=== PATIENT | female | born 1980 | race Caucasian/White ===

== ENCOUNTER 2022-04-07 09:13 | Outpatient (REF) | payer OTHER, SELFPAY ==
[2022-04-07 11:34] LABS: Influenza A PCR NEGATIVE (Negative); Influenza B PCR NEGATIVE (Negative); Resp Syncy Virus RNA Qual PCR NEGATIVE (Negative); SARS COV2 PCR INHOUSE NEGATIVE (Negative)
== END 2022-04-07 09:14 | disposition home or self-care (01) ==
LOC: HO.LAB 09:13
PROVIDERS: Visit Provider Family Medicine
DX: Z20.822 Contact with and (suspected) exposure to COVID-19 (principal); J02.9 Acute pharyngitis, unspecified
CPT/HCPCS: 0241U

== ENCOUNTER → 2023-11-02 09:38 | Outpatient (BNVA) | payer OTHER, SELFPAY | PROVIDERS: Visit Provider Physician Assistant Medical | DX: H10.12 Acute atopic conjunctivitis, left eye (principal); T15.02XA Foreign body in cornea, left eye, initial encounter; Z91.09 Other allergy status, other than to drugs and biological substances | CPT/HCPCS: 92002; 99203 ==

== ENCOUNTER 2024-05-07 10:44 | Outpatient (REF) | payer BC, SELFPAY ==
[2024-05-07 12:04] VITALS: BP 136/77; PULSE 73; RESP 18; TEMP 36.6; O2SAT 98; BMI 23.4
== END 2024-05-07 10:45 | disposition home or self-care (01) ==
LOC: HO.MS 10:44
PROVIDERS: Visit Provider Ophthalmology
PROC: (CPT 67800; principal; 2024-05-07 14:10)
DX: H00.15 Chalazion left lower eyelid (principal)
CPT/HCPCS: 67800; J2004

== ENCOUNTER 2024-07-03 08:31 | Outpatient (AMB) | payer BC, SELFPAY ==
--- NOTE | 2024-07-03 08:33 | A.OFFPC_ITS ---
Vital Signs 07/03/24 08:36 07/03/24 09:10 Height 5 ft 6.14 in Weight 158 lb BMI 25.4 BP 140/70 H 118/72 Blood Pressure Location Lt brachial Lt brachial Position Sitting Sitting Pulse 70 Pulse Source Pulse Oximeter Temp 97.1 F Temp Source Temporal Artery Scan Pulse Oximetry (%) 97 Oxygen Delivery Method Room Air Intake Visit Reasons: establish care Intake Note: Patient is a new patient here to establish care for Depression, Anxiety. Transferring care from [facility]. Medical records have not been requested and have not received. Air Breaker Operator Required: No Hand Spray Operator: Not Required per policy Accompanied by: Self / Same As Patient Allergies No Known Allergies [No Known Allergies*] Allergy (Verified 07/03/24 08:47) Medication List - Last Reconciled 07/03/24 by Yael Ware PA-C No Known Home Meds Tobacco use date assessed: 07/03/24 Dental Screening Dental Screen Date: 07/03/24 Did you have a dental visit in the last 12 months?: Yes Did you have a dental problem in the last 6 months where you did not have access to dental care?: No Was dental information given to patient?: Patient has dentist HPI establish care HPI Details 43 year old female coming to the office for the first time. Presenting for a wellness visit and establishment of care. She underwent surgery for a chalazion in May, initially impacting her vision and requiring urgent referral; management involved a backdated insurance process through [employer]. Past experience with anxiety and depression during her 20s, successfully controlled with coping mechanisms and without current pharmacotherapy. Elevated blood pressure linked to life stress, particularly associated with homeownership and tenant difficulties. Experienced one allergic reaction recently with flushing and throat discomfort post-ingestion of an unidentified food; symptoms relieved by Benadryl. 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 1. Little interest or pleasure in doing things: not at all 2. Feeling down, depressed, or hopeless: not at all 3. Trouble falling or staying asleep, or sleeping too much: not at all 4. Feeling tired or having little energy: several days 5. Poor appetite or overeating: not at all 6. Feeling bad about yourself - or that you are a failure or have let yourself or your family down: not at all 7. Trouble concentrating on things, such as reading the newspaper or watching television: not at all 8. Moving or speaking so slowly that other people could have noticed. Or the opposite - being so fidgety or restless that you have been moving around a lot more than usual: not at all 9. Thoughts that you would be better off or of hurting yourself in some way: not at all Total score: 1 Depression Screening Interpretation: Positive Depression Screening Done: Yes Source: Developed by Drs. Kamaljit Garcia, Sandhya Butt, Eric Pettit and colleagues, with an educational colby from [employer]. Thrive Questionnaire Date Thrive assessed: 07/03/24 I am a: Patient What is your living situation today?: I have a steady place to live Within the past 12 months, did the food you bought not last and you didn't have the money to get more?: Never true Within the past 12 months, did you worry whether your food would run out before you got money to buy more?: Never true Do you have trouble paying for medicines?: No Do you have trouble getting transportation to medical appointments?: No Do you have trouble paying your heating and electricity bill?: No Do you have trouble taking care of your child, family member or friend?: No Do you have trouble with day-to-day activities such as bathing, preparing meals, shopping, managing finances, etc.?: No Are you currently unemployed and looking for a job?: No Are you interested in more education?: No Please select the resources that you would like help with: None Currently or been in a relationship where the following occur: No concerns reported THRIVE Score: 0 AUDIT C Alcohol Use Questionnaire (AUDIT-C) 1. How often do you have a drink containing alcohol?: Monthly or less 2. How many drinks containing alcohol do you have on a typical day when you are drinking?: 1 or 2 3. How often do you have six or more drinks on one occasion?: Less than monthly Total Score: 2 Score Reviewed/Action Taken: Yes LYNETTE-7 AMB Questionnaire LYNETTE-7 Date LYNETTE - 7 assessed: 07/03/24 Feeling nervous, anxious, or on edge: 1 = Several days Not being able to stop or control worryin = Not at all Worrying too much about different things: 0 = Not at all Trouble relaxin = Not at all Being so restless that it is hard to sit still: 0 = Not at all Becoming easily annoyed or irritable: 1 = Several days Feeling afraid as if something awful might happen: 0 = Not at all Total LYNETTE-7 score (0-4 normal; 5-9 mild; 10-14 moderate; 15-21 severe): 2 Source: Developed by Drs. Kamaljit Garcia, Sandhya Butt, Eric Pettit and colleagues, with an educational colby from [employer]. LYNETTE-7 Assessment Billing LYNETTE-7 Assessment Tool: LYNETTE-7 Assessment 85805 Review of Systems Const Denies body aches, Denies chills, Denies fever(s), Denies headache(s) and Denies poor appetite Eyes Reports no additional complaints ENT Denies dizziness and Denies headache(s) Card Denies chest pain, Denies lightheadedness and Denies dyspnea Resp Denies dyspnea GI Denies abdominal pain, Denies constipation, Denies diarrhea, Denies nausea and Denies vomiting Reports no additional complaints Musc Reports no additional complaints and Denies abnormal gait Skin/Breast Reports system reviewed and no additional complaints, except as documented Neuro Denies abnormal gait, Denies dizziness and Denies headache(s) Psych Reports no additional complaints Physical exam (Primary Care) Vital Signs: Last Vital Signs Temp 97.1 F 07/03/24 08:36 Pulse 70 07/03/24 08:36 BP 118/72 07/03/24 09:10 Pulse Ox 97 07/03/24 08:36 Oxygen Delivery Method Room Air 07/03/24 08:36 BMI result Body Mass Index 25.4 Tobacco/Smoking Status: Tobacco use Status Tobacco use date assessed 07/03/24 07/03/24 08:45 Patient Tobacco Use Status Never used Tobacco 07/03/24 08:45 e-Cigarette/Vaping Use Currently Using 07/03/24 08:45 PHQ-9: PHQ-9 Score PHQ-9: Total score 1 07/03/24 08:47 Depression Screening Interpretation: Positive Thrive Assessment: Date of Thrive Assessment Date Thrive assessed 07/03/24 07/03/24 08:45 Currently or been in a relationship where the following occur: No concerns reported Const General: cooperative, healthy appearing, comfortable and no acute distress Orientation/consciousness: patient oriented x3 HENMT Head: Yes normocephalic Ears: hearing grossly normal bilaterally General nose exam: Normal external nose present Eyes General: appearance normal, both eyes and all related structures Conjunctivae: conjunctivae normal Neck Neck: Yes full ROM and Yes no lymphadenopathy Resp Effort & Inspection: normal respiratory effort Auscultation: clear to auscultation bilaterally, no crackles, no rales, no rhonchi and no wheezes Cardio Rate: regular rate Rhythm: regular rhythm Skin General skin exam: no rashes or lesions noted Neuro General: patient oriented x3 Gait exam (Neuro): Normal gait present Extrem General: Yes normal to inspection, Yes full ROM and No edema Psych Affect: normal affect Attitude: cooperative Insight: Good insight present (Psych) Judgement: Good judgement present (Psych) Coding Level of Care Code New Pt Level 4 (80800) Diagnoses Depression F32.A Anxiety F41.9 Chalazion H00.19 Screening for hypercholesterolemia Z13.220 Elevated blood pressure reading without diagnosis of hypertension R03.0 Additional Codes LYNETTE-7 Assessment Billing - LYNETTE-7 Assessment Tool: LYNETTE-7 Assessment 47649 ([id number]) Assessment & Plan Assessment & Plan (1) Depression: Code(s): F32.A - Depression, unspecified Category: Medical Plan: Patient has a history of depression and anxiety feels her symptoms are well managed at this time without medication management. Declining referral for counseling at this time. (2) Anxiety: Code(s): F41.9 - Anxiety disorder, unspecified Category: Medical Plan: Patient history of anxiety managed by coping mechanism and magnesium at bedtime. At this time she has been having worsening anxiety but declines medication management on referral for counseling. (3) Chalazion: Code(s): H00.19 - Chalazion unspecified eye, unspecified eyelid Category: Medical Plan: Back dated referral placed for ophthalmology. Patient does have referral from [facility] but unsure of status (4) Screening for hypercholesterolemia: Code(s): Z13.220 - Encounter for screening for lipoid disorders Category: Medical Plan: ordered for updated blood work. (5) Elevated blood pressure reading without diagnosis of hypertension: Code(s): R03.0 - Elevated blood-pressure reading, without diagnosis of hypertension Category: Medical Plan: Blood pressure mildly elevated initially in the office today however when retaken was normal. Avoid salt intake and encourage healthy diet and regular exercise. Plan Ongoing health maintenance emphasizes pending comprehensive screenings, including mammogram and colorectal cancer screening with Cologuard. Blood work has been ordered, and further evaluation is dependent on forthcoming diagnostic results. Patient encouraged to maintain current lifestyle practices and stress management techniques. This note was constructed using voice recognition software. While every effort has been made to ensure accuracy and diesel engine ii pipe fitter, still areas may have been included sometimes these areas may affect the content or meeting of the given symptoms. Total time spent caring for the patient today was thirty minutes. This includes time spent before the visit reviewing the chart, time spent during the visit, and time spent after the visit and documentation. Patient was informed and verbally consented to the use of an ambient scribe for clinic note documentation during this visit. Orders: Orders Complete Blood Count Auto Diff Today Z00.00 - Encounter for general adult medical examination without abnormal findings Comprehensive Met. Panel Today Z00.00 - Encounter for general adult medical examination without abnormal findings TSH reflex Free T4 Today Z00.00 - Encounter for general adult medical examination without abnormal findings Free T4 (Free Thyroxine) Today Z00.00 - Encounter for general adult medical examination without abnormal findings Vitamin B12 and Folate Today Z00.00 - Encounter for general adult medical examination without abnormal findings Lipid Panel Today Z13.220 - Encounter for screening for lipoid disorders Vitamin D 25-OH Total Today Z00.00 - Encounter for general adult medical examination without abnormal findings MM tomosynthesis screening BI Today Z12.31 - Encounter for screening mammogram for malignant neoplasm of breast Referrals Ophthalmology Referral H00.19 - Chalazion unspecified eye, unspecified eyelid MARKETING OPERATIONS COORDINATOR Referral Z12.4 - Encounter for screening for malignant neoplasm of cervix
[2024-07-03 08:36] VITALS: BP 140/70; PULSE 70; TEMP 36.2; O2SAT 97; BMI 25.4
[2024-07-03 09:10] VITALS: BP 118/72
== END 2024-07-03 09:12 | disposition home or self-care (01) ==
LOC: HO.HMCH 08:31
DX: F32.A Depression, unspecified (principal); F41.9 Anxiety disorder, unspecified; H00.19 Chalazion unspecified eye, unspecified eyelid; Z13.220 Encounter for screening for lipoid disorders; R03.0 Elevated blood-pressure reading, without diagnosis of hypertension

== ENCOUNTER → 2024-07-03 08:31 | Outpatient (BNVA) | payer BC, SELFPAY | DX: F32.A Depression, unspecified (principal); F41.9 Anxiety disorder, unspecified; H00.19 Chalazion unspecified eye, unspecified eyelid; R03.0 Elevated blood-pressure reading, without diagnosis of hypertension | CPT/HCPCS: 96127 ==

== ENCOUNTER 2024-07-13 08:57 | Outpatient (REF) | payer BC, SELFPAY ==
--- OUTSIDE RECORDS SUMMARY | 2024-07-13 09:12 | XMS_ITS ---
Author Organization Unknown Allergies, Adverse Reactions, Alerts Substance Reaction Status Unknown - Active Problems Problem Status Start date Recorded date No Known Problems Inactive 5997-08-36C15: 50:35+00:0 0 2044-70-87B37:50:35+00:00 Colon cancer screening active 2024-05-2905-29T21:27:34Z Breast cancer screening active 2024-05-292024T21:27:35Z Cervical cancer screening active 2024-05-2929-05-24T21:27:36Z Vital Signs Observation / Date May 29, 2024 BP Diastolic 80 mm[Hg] Weight 65.50729386195074 kg Height 167.93667051391015 c m BP Systolic 120 mm[Hg] Body Mass Index (BMI) 23.4 kg/m2 Plan of Treatment Description Planned Activity Planned Timing - Next preventative health visit in 1 yearBMI (yearly): 23.40 BP (yearly): <120/80 Lipids: (at least every 5 years): overdue HIV, HBV, HCV screen (at least once): declinedLifestyle recommendations: nutritious diet, regular physical activity, sleep hygiene, stress management, safe driving and sex, minimal alcohol consumption, smoking cessation, sun protection, oral hygiene and dental exams, eye examsPHQ2 or PHQ9: 0 GAD2 or GAD7: 1 Recommended yearlyTdap/Td: every 10 years Covid: yearly Influenza: yearly Shingrix (age 50+): at 50 Pneumococcal (age 50+) PCV15, PCV20, or PCV21: at 50 If PCV15 done, PPSV23 due 1 year [id number] ASCVD risk: averageRisk: average Last screen: none Next screen due: will send for Cologuard Encourage annual FIT starting at age 45 for average riskRisk: average Last screen: none Next screen due: will need referral for screening mammogramRisk: average Last screen: 2021 or 2022 - pap smear was normal Next screen due: will need referral to new GYNDiscussed sun protection and reviewed ABCDEs of melanomaN/A as pt does not meet criteriacologuardMammog raine, screening, bilateralHEMOGLOBIN [id number] PANEL, STANDARDBASIC METABOLIC PANELDiscussed with Destiny Serrano. I have reviewed the note and agree with the assessment and plan. May 29, , , , , 2024Fe, 2024Feb , 2024Fe, 2024Feb , 2024Feb , b , 2024-----May 29, 2024 Encounters Encounter Type Performer Location Encounter Date Encoun ter Notes unknown Destiny Serrano [facility] 4315-98-16V66:45:0 0Z no notes unknown Liz Ngo; Destiny Serrano [facility] 2384-20-14J34:45:0 0Z no notes Patient Care team information Name Category Status Period Participants - Episode of care-focu sed care team Proposed 5058-16-09F48:52:26+00:00 - 5326-91-10L59:52:26+00:00 - - Episode of care-focu sed care team Proposed 1226-00-71P37:50:34+00:00 - 4311-63-88N90:50:34+00:00 - - Episode of care-focu sed care team Proposed 7572-90-24Y91:25:38+00:00 - 0683-53-13Z31:25:38+00:00 - - - Proposed period not known - - - Proposed period not known - Notes Author - Date Note - [id number]:50:35 +00:00 Not Available 2024-05-29 12:45:00 General: Well-appearing, no acute distressResp: No cough, SOB or wheezing, normal RRNS: Alert & oriented x 3Psych: Normal mood and affect - 6465-07-70Q68:25:39+00:00no notes- 5018-21-81R97:50:35+00:00* Not Available - 1061-19-27O10:52:27+00:00* Date of Service Physical Exam 2024-05-29 12:45:00 General: Well-appear ing, no acute distressResp: No cough, SOB or wheezing, normal RRNS: Alert & oriented x 3Psych: Normal mood and affect - 4962-20-68A64:52:27+00:00* Date of Service Assessments 2024-05-29 12:45:[address] [facility] ss examinationEncounter for behavioral health screeningEncounter for counseling regarding immunizationCardiac risk counselingColon cancer screeningBreast cancer screeningCervical cancer screeningSkin cancer screeningScreening for lung cancer - 5170-70-32J03:50:35+00:00* No Information - 3618-88-31C16:25:39+00:00* Date of Service Assessments 2024-05-29 12:45:[address] [facility] ss examinationEncounter for behavioral health screeningEncounter for counseling regarding immunizationCardiac risk counselingColon cancer screeningBreast cancer screeningCervical cancer screeningSkin cancer screeningScreening for lung cancer - 9055-48-02O87:52:27+00:00* Date of Service Review of Systems 2024-05-29 12:45:00 General: All other p ertinent ROS negative,Denies fever, chills weight loss or sleep abnormalitiesEyes: Denies visual abnormalitiesHENT: Denies nasal discharge, sore throat, ear pain or headacheResp: No shortness of breath or wheezingCVS: Denies chest pain, palpitations, irregular heart beat or leg edemaGI: Denies nausea, vomiting, diarrhea, abdominal pain or blood in stoolGU: Denies dysuria, hesitancy or hematuriaMSS: Denies joint pain or swellingNS: Denies weakness, nerve pain or numbnessSkin: No rashes - 9871-49-27M68:50:35+00:00no notes- 6183-57-42A56:25:39+00:00* Date of Service Review of Systems 2024-05-29 12:45:00 General: All other p ertinent ROS negative,Denies fever, chills weight loss or sleep abnormalitiesEyes: Denies visual abnormalitiesHENT: Denies nasal discharge, sore throat, ear pain or headacheResp: No shortness of breath or wheezingCVS: Denies chest pain, palpitations, irregular heart beat or leg edemaGI: Denies nausea, vomiting, diarrhea, abdominal pain or blood in stoolGU: Denies dysuria, hesitancy or hematuriaMSS: Denies joint pain or swellingNS: Denies weakness, nerve pain or numbnessSkin: No rashharris - 5341-76-35J59:50:35+00:00* Not Available Destiny Serrano - 3455-03-21J33:52:27+00:00no notes
[2024-07-13 09:51] LABS: Appearance Urine Clear; Color Urine Dark Yellow; Glucose Urine UA Negative (Negative); Leukocyte Esterase Urine Negative (Negative); Nitrite Urine Negative (Negative); PH 6.5 (5.0-9.0); Specific Gravity - Urine 1.025 (1.005-1.025); Urine Blood Negative (Negative); Urine Ketones Trace mg/dL (Negative); Urine Protein Negative (Neg-Trace)
== END 2024-07-13 08:58 | disposition home or self-care (01) ==
LOC: HO.LAB 08:57
DX: R39.9 Unspecified symptoms and signs involving the genitourinary system (principal)
CPT/HCPCS: 81003

== ENCOUNTER 2024-09-10 15:52 | Outpatient (AMB) | payer BC, SELFPAY ==
--- NOTE | 2024-09-10 15:57 | MHC.PC.OV ---
Vital Signs 09/10/24 15:58 Height 5 ft 6 in Weight 158 lb BMI 25.5 BP 110/68 Blood Pressure Location Rt brachial Position Sitting Pulse 61 Pulse Source Pulse Oximeter Temp 97.5 F Temp Source Temporal Artery Scan Pulse Oximetry (%) 98 Oxygen Delivery Method Room Air Intake Visit Reasons: annual exam Intake Note: Patient is here today for a physical. Political Cartoonist Required: No Behavioral Health Care Coordinator: Not Required per policy Accompanied by: Self / Same As Patient Allergies No Known Allergies [No Known Allergies*] Allergy (Verified 09/10/24 16:00) Medication List - Last Reconciled 09/10/24 by Yael Ware PA-C No Known Home Meds Tobacco use date assessed: 09/10/24 Dental Screening Dental Screen Date: 07/03/24 HPI annual exam HPI Details 43-year-old female with past medical history of anxiety and depression coming to the office for annual exam. Presenting for an annual wellness visit. She is overall happy and healthy with no new concerns since her last visit. She is scheduled for a mammogram and needs to complete her Cologuard kit for colorectal cancer screening. The patient remains on the waitlist for a Pap smear. pap smear: on waitlist for [facility] mammogram: scheduled for 09/2024 colonoscopy: has the cologuard box at home eye doctor: has appt with Dr. 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 Cognitive needs: No Hearing needs: No Vision needs: Yes (Glasses) Female Reproductive History Menstrual control method: none Questionnaire Thrive Questionnaire Date Thrive assessed: 07/03/24 I am a: Patient What is your living situation today?: I have a steady place to live Within the past 12 months, did the food you bought not last and you didn't have the money to get more?: Never true Within the past 12 months, did you worry whether your food would run out before you got money to buy more?: Never true Do you have trouble paying for medicines?: No Do you have trouble getting transportation to medical appointments?: No Do you have trouble paying your heating and electricity bill?: No Do you have trouble taking care of your child, family member or friend?: No Do you have trouble with day-to-day activities such as bathing, preparing meals, shopping, managing finances, etc.?: No Are you currently unemployed and looking for a job?: No Are you interested in more education?: No Please select the resources that you would like help with: None Currently or been in a relationship where the following occur: No concerns reported THRIVE Score: 0 LYNETTE-7 AMB Questionnaire LYNETTE-7 Date LYNETTE - 7 assessed: 07/03/24 Source: Developed by Drs. Kamaljit Garcia, Sandhya Butt, Eric Pettit and colleagues, with an educational colby from [employer]. Review of Systems Const Denies body aches, Denies fatigue, Denies fever(s), Denies frequent falls, Denies headache(s) and Denies weakness Eyes Reports no additional complaints and Denies change in vision ENT Denies dizziness, Denies facial pain, Denies headache(s) and Denies nasal congestion Card Denies chest pain, Denies syncope, Denies irregular heart rhythm, Denies leg edema, Denies lightheadedness and Denies dyspnea Resp Denies cough and Denies dyspnea GI Denies abdominal pain, Denies constipation, Denies dyspepsia, Denies diarrhea, Denies nausea and Denies vomiting Denies urinary frequency, Denies dysuria, Denies urinary hesitancy and Denies urinary urgency Musc Denies back pain and Denies myalgias Skin/Breast Reports system reviewed and no additional complaints, except as documented Neuro Denies dizziness, Denies syncope, Denies frequent falls, Denies headache(s) and Denies weakness Psych Reports no additional complaints Endo Denies fatigue Physical exam (Primary Care) Tobacco/Smoking Status: Tobacco use Status Tobacco use date assessed 07/03/24 07/03/24 08:45 Patient Tobacco Use Status Never used Tobacco 07/03/24 08:45 e-Cigarette/Vaping Use Currently Using 07/03/24 08:45 Thrive Assessment: Date of Thrive Assessment Date Thrive assessed 07/03/24 07/03/24 08:45 Currently or been in a relationship where the following occur: No concerns reported Const General: cooperative, healthy appearing, comfortable and no acute distress Orientation/consciousness: patient oriented x3 HENMT Head: Yes normocephalic Ears: hearing grossly normal bilaterally, external ears normal, TM's normal bilaterally and EAC's normal General nose exam: Normal external nose present Face and sinus: Yes normal facial exam and Yes sinuses nontender Mouth: Normal oral and palatal mucosa present and tongue normal Throat: Yes posterior oropharynx normal Eyes General: appearance normal, both eyes and all related structures Conjunctivae: conjunctivae normal Pupils: Equal, round and reactive pupils present EOM: EOMs intact bilaterally and No Nystagmus present Neck Neck: Yes normal visual inspection, Yes full ROM and Yes no lymphadenopathy Chest Chest palpation & inspection: normal inspection of the chest Resp Effort & Inspection: normal respiratory effort Auscultation: clear to auscultation bilaterally, no crackles, no rales, no rhonchi, no wheezes and breath sounds present Cardio Rate: regular rate Rhythm: regular rhythm Peripheral pulses: radial pulses present and dorsalis pedis present GI Inspection: Yes normal to inspection and No Abdominal wall edema Palpation (GI): Soft to palpation, not firm and nontender Auscultation: normal bowel sounds Rectal Exam - Female: deferred General: Yes no CVA tenderness Back/Spine/Pelvis Back: no CVA tenderness Skin General skin exam: no rashes or lesions noted Neuro General: patient oriented x3 Cranial nerves: Yes Equal, round and reactive pupils present, Yes Midline tongue present, Yes Ability to bilaterally elevate shoulders present and No Nystagmus present Gait exam (Neuro): Normal gait present Extrem General: Yes normal to inspection, Yes full ROM, No no pedal edema and No edema Psych Speech and movement: Normal speech and movement present Affect: normal affect Insight: Good insight present (Psych) Judgement: Good judgement present (Psych) Coding Level of Care Code Est Pt Prev Care 40-64y(84254) Diagnoses Annual physical exam Z00.00 Depression F32.A Anxiety F41.9 Elevated blood pressure reading without diagnosis of hypertension R03.0 Screening for hypercholesterolemia Z13.220 Assessment & Plan Assessment & Plan (1) Annual physical exam: Code(s): Z00.00 - Encounter for general adult medical examination without abnormal findings Category: Medical Plan: Patient is due for mammogram which has been scheduled, cologuard box has not been completed and patient it encouraged to have this done. She is still on a waitlist for [facility] certified technician in regards to her pap smear. She has not yet completed blood work and was reminded to have this done today. Healthy diet and regular exercise is encouraged. (2) Depression: Code(s): F32.A - Depression, unspecified Category: Medical Plan: Patient has a history of depression and anxiety feels her symptoms are well managed at this time without medication management. Declining referral for counseling at this time. (3) Anxiety: Code(s): F41.9 - Anxiety disorder, unspecified Category: Medical Plan: Patient history of anxiety managed by coping mechanism and magnesium at bedtime. At this time she has been having worsening anxiety but declines medication management on referral for counseling. (4) Elevated blood pressure reading without diagnosis of hypertension: Code(s): R03.0 - Elevated blood-pressure reading, without diagnosis of hypertension Category: Medical Plan: Blood pressure WNL today. Avoid salt intake and encourage healthy diet and regular exercise. (5) Screening for hypercholesterolemia: Code(s): Z13.220 - Encounter for screening for lipoid disorders Category: Medical Plan: Reminded patient about blood work. Plan The patient was evaluated in an annual wellness context and is in good general health. Scheduled health maintenance activities include completing a Cologuard kit, attending the upcoming mammogram, and a pending Pap smear appointment for comprehensive screenings. The patient needs to complete blood work, and I will follow up with results; any necessary interventions will be discussed based on those findings. Lifestyle modifications, particularly dietary habits, were advised to manage morning sickness related to high-sugar food intake. Other than that, routine follow-up in a year is recommended barring changes in health status. This note was constructed using voice recognition software. While every effort has been made to ensure accuracy and automatic drill operator, still areas may have been included sometimes these areas may affect the content or meeting of the given symptoms. Total time spent caring for the patient today was 30 minutes. This includes time spent before the visit reviewing the chart, time spent during the visit, and time spent after the visit and documentation. Patient was informed and verbally consented to the use of an ambient scribe for clinic note documentation during this visit.
[2024-09-10 15:58] VITALS: BP 110/68; PULSE 61; TEMP 36.4; O2SAT 98; BMI 25.5
== END 2024-09-10 16:16 | disposition home or self-care (01) ==
LOC: HO.HMCH 15:53
DX: Z00.00 Encounter for general adult medical examination without abnormal findings (principal); F32.A Depression, unspecified; F41.9 Anxiety disorder, unspecified; R03.0 Elevated blood-pressure reading, without diagnosis of hypertension; Z13.220 Encounter for screening for lipoid disorders

== ENCOUNTER → 2024-09-10 15:52 | Outpatient (BNVA) | payer BC, SELFPAY | DX: Z13.89 Encounter for screening for other disorder (principal) ==

== ENCOUNTER 2024-10-09 13:32 | Outpatient (REF) | payer BC, SELFPAY ==
[2024-10-09 13:47] LABS: MANUAL DIFF FLAG NO
--- OUTSIDE RECORDS SUMMARY | 2024-10-09 14:14 | XMS_ITS ---
Author Organization Unknown Allergies, Adverse Reactions, Alerts Substance Reaction Status Unknown - Active Problems Problem Status Start date Recorded date No Known Problems Inactive 0955-01-77F03: 50:35+00 :00 9870-13-67G87:50:35+00:00 Colon cancer screening active 2024-05-2905-29T21:27:34Z Breast cancer screening active 2024-05-292024T21:27:35Z Cervical cancer screening active 2024-05-2929-05-24T21:27:36Z Encounter for immunization safety counseling Active 2024-05-29 Encounter for screening examination for mental health and behavioral disorders, unspecified Active 2024-05-29 Chalazion left lower eyelid Active 2024-05-07 Chalazion left lower eyelid Active 2024-05-06 Encounter for screening for malignant neoplasm of skin Active 2024-05-29 Chalazion left lower eyelid Active 2024-04-20 Chalazion left lower eyelid Active 2024-05-07 Chalazion left lower eyelid Active 2024-05-07 Encounter for immunization safety counseling Active 2024-05-29 Chalazion left lower eyelid Active 2024-05-07 Chalazion left lower eyelid Active 2024-04-20 Chalazion left lower eyelid Active 2024-05-06 Encounter for screening examination for mental health and behavioral disorders, unspecified Active 2024-05-29 Encounter for screening for malignant neoplasm of cervix Active 2024-05-29 Encounter for screening for malignant neoplasm of skin Active 2024-05-29 Chalazion left lower eyelid Active 2024-05-07 Encounter for screening for malignant neoplasm of cervix Active 2024-05-29 Encounter for screening for malignant neoplasm of respiratory organs Active 2024-05-29 Encounter for other screenin g for malignant neoplasm of breast Active 2024-05-29 Encounter for other screenin g for malignant neoplasm of breast Active 2024-05-29 Encounter for screening for malignant neoplasm of colon Active 2024-05-29 Chalazion left lower eyelid Active 2024-05-06 Encounter for screening for malignant neoplasm of cervix Active 2024-05-29 Encounter for screening for malignant neoplasm of respiratory organs Active 2024-05-29 Encounter for screening for malignant neoplasm of respiratory organs Active 2024-05-29 Other specified counseling Active Other specified counseling Active Chalazion left lower eyelid Active 2024-05-07 Encounter for general adult medical examination without abnormal findings Active 2024-05-29 Chalazion left lower eyelid Active 2024-05-07 Encounter for screening examination for mental health and behavioral disorders, unspecified Active 2024-05-29 Encounter for screening for malignant neoplasm of colon Active 2024-05-29 Other specified counseling Active Encounter for screening for malignant neoplasm of skin Active 2024-05-29 Chalazion left lower eyelid Active 2024-04-20 Encounter for screening for malignant neoplasm of colon Active 2024-05-29 Chalazion left lower eyelid Active 2024-05-07 Encounter for general adult medical examination without abnormal findings Active 2024-05-29 Encounter for immunization safety counseling Active 2024-05-29 Encounter for general adult medical examination without abnormal findings Active 2024-05-29 Encounter for other screenin g for malignant neoplasm of breast Active 2024-05-29 Chalazion left lower eyelid Active 2024-05-06 Vital Signs Observation / Date May 29, 2024 Weight [id number] kg Body Mass Index (BMI) 23.4 kg/m2 Height 167.17737201578298 c m BP Systolic 120 mm[Hg] BP Diastolic 80 mm[Hg] Plan of Treatment Description Planned Activity Planned Timing - Next preventative he alth visit in 1 yearBMI (yearly): 23.40 BP [...] If PCV15 done, PPSV23 due 1 year [id number] ASCVD risk: averageRisk: average Last screen: none [...] of melanomaN/A as pt does not meet criteriacologuardMammogram, screening, bilateralHEMOGLOBIN [id number] PANEL, STANDARDBASIC METABOLIC PANELDiscussed with Destiny Serrano. I have reviewed the note and agree with the assessment and plan. May 29, 2024Feb 25, 2024Feb 25, 2024Feb 25, 2024Feb 25, 2024Feb 25, 2024Feb 25, 2024Feb 25, 2024Feb 25, 2024Feb 25, 2024Feb , 2024-----May 29, 2024 - Next preventative he alth visit in 1 yearBMI (yearly): 23.40 BP [...] If PCV15 done, PPSV23 due 1 year [id number] ASCVD risk: averageRisk: average Last screen: none Next screen due: will send for Cologuard Encourage annual FIT starting at age 45 for average riskRisk: average Last screen: none Next screen due: will need referral for screening mammogramRisk: average Last screen: 2021 or 2023 - pap smear was normal Next screen due: will need referral to new GYNDiscussed sun protection and reviewed ABCDEs of melanomaN/A as pt does not meet criteriacologuardMammogram, screening, bilateralHEMOGLOBIN [id number] PANEL, STANDARDBASIC METABOLIC PANEL May 29, , b , 2024Feb , 2024Feb , 2024Feb , 2024Feb , 2024Feb , 2024Fe, 2024Fe, 2024Feb , 2024----- Encounters Encounter Type Performer Location Encounter Date Encoun ter Notes unknown Destiny Varghese [employer]) 9500-64-97U28:45:0 0Z no notes unknown Liz Ngo; Destiny Serrano [employer] 1565-51-19T35:45:0 0Z no notes Patient Care team information Name Category Status Period Participants - Episode of care-focu sed care team Proposed 5232-80-99H54:52:26+00:00 - 2629-48-97H56:52:26+00:00 - - Episode of care-focu sed care team Proposed 4437-27-81P32:50:34+00:00 - 9428-09-36X45:50:34+00:00 - - Episode of care-focu sed care team Proposed 5251-20-41H18:25:38+00:00 - 3297-42-91U95:25:38+00:00 - - - Proposed period not known - - - Proposed period not known - Insurance Providers Payer name Policy type / Coverage type Policy ID Covered constitution party ID Policy Salter Bcsalazar [place] ma Notes Author - Date Note - 4926-97-42T45:50:35+00:00 Not Available - 7869-95-07S72:25:39+00:00 2024-05-29 12:45:00 General: Well-appear ing, no acute distressResp: No cough, SOB or wheezing, normal RRNS: Alert & oriented x 3Psych: Normal mood and affect - 0771-72-79I00:25:39+00:00no notes- 3513-26-11T39:50:35+00:00* Not Available - 1643-15-59N12:52:27+00:00* Date of Service Physical Exam 2024-05-29 12:45:00 General: Well-appear ing, no acute distressResp: No cough, SOB or wheezing, normal RRNS: Alert & oriented x 3Psych: Normal mood and affect - 8343-73-58W90:52:27+00:00* Date of Service Assessments 2024-05-29 12:45:00 [facility] examinationEncounter for behavioral health screeningEncounter for counseling regarding immunizationCardiac risk counselingColon cancer screeningBreast cancer screeningCervical cancer screeningSkin cancer screeningScreening for lung cancer - 6655-49-71T13:50:35+00:00* No Information - 5491-25-25S21:25:39+00:00* Date of Service Assessments 2024-05-29 12:45:00 [facility] examinationEncounter for behavioral health screeningEncounter for counseling regarding immunizationCardiac risk counselingColon cancer screeningBreast cancer screeningCervical cancer screeningSkin cancer screeningScreening for lung cancer - 4080-71-46T14:52:27+00:00* Date of Service Review of Systems 2024-05-29 [...] nerve pain or numbnessSkin: No rashes - 3610-89-85H75:50:35+00:00no notes- 2848-25-19O39:25:39+00:00* Date of Service Review of Systems 2024-05-29 [...] nerve pain or numbnessSkin: No rashes - 0652-50-50D61:50:35+00:00* Not Available Destiny Serrano - 4991-01-04Z25:52:27+00:00no notes
[2024-10-09 14:27] LABS: Hematocrit 38.0 % (37.0-47.0); Hemoglobin 13.3 g/dl (12.0-16.0); Imm Gran Abs Auto 0.03 X10*3/uL (0.00-0.03); Imm Gran Pct Auto 0.4 % (0.0-0.4); Lymphocytes Absolute Auto 1.5 X10*3/uL (1.2-4.9); Mean Corpuscular HGB Conc 35.0 g/dl (31.0-35.0); Mean Corpuscular Hemoglobin 31.4 pg (27.0-33.0); Mean Corpuscular Volume 89.6 fL (80.0-98.0); NRBC Abs Auto 0.000 X10*3/uL (0.0-0.012); NRBC Pct Auto 0.0 /100WBC (0.0-0.2); Platelet Count 253 X10*3/uL (160-400); Red Blood Count 4.24 X10*6/uL (4.20-5.50); White Blood Count 8.3 X10*3/uL (4.8-10.8)
[2024-10-09 15:08] LABS: Alanine Aminotransferase 18 U/L (0-31); Albumin Level 4.2 g/dL (3.5-5.0); Alkaline Phosphatase 76 U/L (39-117); Anion Gap 10 (12-20); Aspartate Amino Transferase 26 U/L (5-31); Blood Urea Nitrogen 13 mg/dL (9-16); Calcium 8.9 mg/dL (8.4-10.2); Carbon Dioxide 26 mmol/L (22-29); Chloride 108 mmol/L (96-108); Cholesterol 145 mg/dL (<200); Estimated Glomerular Filt Rate > 60; HDL Cholesterol 42 mg/dL (>40); Potassium 4.0 mmol/L (3.3-5.1); Sodium 140 mmol/L (135-145); Total Protein 7.1 g/dL (6.5-8.0); Triglycerides 68 mg/dL (<150)
[2024-10-09 15:19] LABS: Free T4 (Free Thyroxine) 0.88 ng/dL (0.71-1.85)
[2024-10-09 15:28] LABS: Folate 16.5 ng/mL (> or = 4.0); Vitamin B12 1442 pg/mL (200-900)
== END 2024-10-09 13:33 | disposition home or self-care (01) ==
LOC: HO.LAB 13:32
DX: H66.001 Acute suppurative otitis media without spontaneous rupture of ear drum, right ear (principal); T78.3XXA Angioneurotic edema, initial encounter; Z00.00 Encounter for general adult medical examination without abnormal findings; Z13.220 Encounter for screening for lipoid disorders
CPT/HCPCS: 36415; 80053; 80061; 82306; 82607; 82746; 84439; 84443; 85025

== ENCOUNTER 2024-10-09 15:50 | Outpatient (AMB) | payer BC, SELFPAY ==
--- NOTE | 2024-10-09 15:54 | MHC.PC.OV ---
Vital Signs 10/09/24 15:56 Height 5 ft 6 in Weight 150 lb 8 oz BMI 24.3 BP 118/76 Blood Pressure Location Lt brachial Position Sitting Pulse 68 Pulse Oximetry (%) 98 Oxygen Delivery Method Room Air Intake Visit Reasons: Right ear pain, amoxiciline alergic reaction Psychometric Examiner Required: No Accompanied by: Self / Same As Patient Allergies No Known Allergies (No Known Allergies*) Allergy (Verified 10/09/24 16:02) Medication List - Last Reconciled 10/09/24 by Cole Min PA-C No Known Home Meds Tobacco use date assessed: 09/10/24 Dental Screening Dental Screen Date: 10/09/24 HPI Right ear pain, amoxiciline alergic reaction HPI Details The patient is a 43-year-old female presenting with ear pain and suspected allergic reaction. The ear pain began approximately a week ago, initially subsiding before worsening again midweek. The patient describes the sensation as being underwater with ringing and associated jaw pain. She was diagnosed with both middle and outer ear infections at urgent care and was prescribed amoxicillin and ear drops. The patient experienced an allergic reaction after taking amoxicillin, characterized by itching, facial redness, swelling, and throat constriction. She took Benadryl, which alleviated the symptoms, although she had a similar reaction two months prior without medication involvement. The patient has no known history of allergies except for dust and has not changed any personal care products recently. 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 Cognitive needs: No Hearing needs: No Vision needs: Yes (Glasses) Questionnaire Thrive Questionnaire Date Thrive assessed: 10/09/24 I am a: Patient What is your living situation today?: I have a steady place to live Within the past 12 months, did the food you bought not last and you didn't have the money to get more?: Never true Within the past 12 months, did you worry whether your food would run out before you got money to buy more?: Never true Do you have trouble paying for medicines?: No Do you have trouble getting transportation to medical appointments?: No Do you have trouble paying your heating and electricity bill?: No Do you have trouble taking care of your child, family member or friend?: No Do you have trouble with day-to-day activities such as bathing, preparing meals, shopping, managing finances, etc.?: No Are you currently unemployed and looking for a job?: No Are you interested in more education?: No Please select the resources that you would like help with: None Currently or been in a relationship where the following occur: No concerns reported THRIVE Score: 0 LYNETTE-7 AMB Questionnaire LYNETTE-7 Date LYNETTE - 7 assessed: 10/09/24 Source: Developed by Drs. Kamaljit Garcia, Sandhya Butt, Eric Pettit and colleagues, with an educational colby from [employer]. Review of Systems Const Denies headache(s) Eyes Denies loss of vision ENT Denies vertigo, Denies dizziness, Denies headache(s) and Denies sore throat Card Denies chest pain, Denies leg edema and Denies lightheadedness Resp Denies cough, Denies hemoptysis and Denies wheezing GI Denies abdominal pain, Denies melena, Denies constipation, Denies diarrhea and Denies vomiting Denies urinary frequency, Denies dysuria and Denies urinary urgency Musc Denies arthralgias, Denies joint swelling, Denies numbness and Denies tingling Neuro Denies Abnormal speech present, Denies behavioral changes, Denies vertigo, Denies dizziness, Denies headache(s), Denies loss of vision, Denies memory loss, Denies numbness and Denies tingling Psych Denies anxiety, Denies behavioral changes, Denies depression, Denies memory loss and Denies panic attacks Timbo/Lymph Denies easy bleeding and Denies easy bruising Aller/Immun Denies wheezing Physical exam (Primary Care) Vital Signs: Last Vital Signs Pulse 68 10/09/24 15:56 BP 118/76 10/09/24 15:56 Pulse Ox 98 10/09/24 15:56 Oxygen Delivery Method Room Air 10/09/24 15:56 BMI result Body Mass Index 24.3 Tobacco/Smoking Status: Tobacco use Status Tobacco use date assessed 09/10/24 10/09/24 16:00 Patient Tobacco Use Status Never used Tobacco 10/09/24 16:00 e-Cigarette/Vaping Use Currently Using 10/09/24 16:00 Thrive Assessment: Date of Thrive Assessment Date Thrive assessed 10/09/24 10/09/24 16:00 Currently or been in a relationship where the following occur: No concerns reported Const General: healthy appearing, no acute distress, alert and awake Nutritional Appearance: well nourished Orientation/consciousness: oriented to person, oriented to place and oriented to time HENMT Other: RIGHT EXTERNAL CANAL SLIGHTLY EDEMATOUS AND ERYTHEMATOUS, TM ERYTHEMATOUS. Ears: TM's normal bilaterally General nose exam: Normal nasal mucous membranes and turbinates present Eyes Conjunctivae: conjunctivae normal Sclerae: sclerae normal Pupils: Equal, round and reactive pupils present Neck Neck: Yes no lymphadenopathy and Yes no JVD Thyroid: Thyroid normal Carotids: no bruits Resp Effort & Inspection: normal respiratory effort and not tachypneic Auscultation: no crackles, no rales, no rhonchi and no wheezes Cardio Rate: regular rate Rhythm: regular rhythm Heart sounds: no murmurs and normal S1 and S2 GI Palpation (GI): Soft to palpation, nontender, no hepatomegaly and no splenomegaly Auscultation: normal bowel sounds Skin General skin exam: no rashes or lesions noted and dry skin Neuro General: oriented to person, oriented to place and oriented to time Cranial nerves: Yes Equal, round and reactive pupils present Speech: No Abnormal speech present Gait exam (Neuro): Normal gait present Motor exam (neuro): no tremor noted Extrem Right upper extremity: full ROM Left upper extremity: full ROM Right lower extremity: full ROM; no edema Left lower extremity: full ROM; no edema Psych Mental Status: mental status grossly normal Speech and movement: Normal speech and movement present Affect: normal affect Attitude: cooperative Thought process: Normal thought process present Coding Level of Care Code Est Pt Level 4 (43440) Diagnoses Angioedema, initial encounter T78.3XXA Encounter type: initial encounter Non-recurrent acute suppurative otitis media of right ear without spontaneous rupture of tympanic membrane H66.001 Otitis media type: suppurative Chronicity: acute Laterality: right Recurrence: non-recurrent Spontaneous tympanic membrane rupture: without spontaneous rupture Assessment & Plan Assessment & Plan (1) Angio-edema: Code(s): T78.3XXA - Angioneurotic edema, initial encounter Category: Medical Qualifiers: Encounter type: initial encounter Qualified Code(s): T78.3XXA - Angioneurotic edema, initial encounter Plan: The patient was advised to carry an EpiPen for emergency use in case of future allergic reactions. Blood allergy testing was recommended to identify potential allergens, including environmental and food allergens. A referral to an commercial real estate manager was offered to further investigate the cause of the allergic reactions. (2) Otitis media: Code(s): H66.90 - Otitis media, unspecified, unspecified ear Category: Medical Qualifiers: Otitis media type: suppurative Chronicity: acute Laterality: right Recurrence: non-recurrent Spontaneous tympanic membrane rupture: without spontaneous rupture Qualified Code(s): H66.001 - Acute suppurative otitis media without spontaneous rupture of ear drum, right ear Plan: The patient was advised to continue with the prescribed amoxicillin and ear drops for the treatment of the ear infection. Prednisone was also prescribed to reduce inflammation and alleviate symptoms. Orders: Orders Resp Allergy Profile Region I Today T78.3XXA - Angioneurotic edema, initial encounter Medications: New epinephrine (EpiPen 2-Alvaro) for 2 doses 0.3 mg (0.3 mL) IM ONCE PRN 2 ea 0RF anaphylaxis 30 days T78.3XXA - Angioneurotic edema, initial encounter prednisone 20 mg PO DAILY 4 tabs 0RF 4 days H66.001 - Acute suppurative otitis media without spontaneous rupture of ear drum, right ear
[2024-10-09 15:56] VITALS: BP 118/76; PULSE 68; O2SAT 98; BMI 24.3
== END 2024-10-09 16:23 | disposition home or self-care (01) ==
DX: T78.3XXA Angioneurotic edema, initial encounter (principal); H66.001 Acute suppurative otitis media without spontaneous rupture of ear drum, right ear

== ENCOUNTER 2025-02-25 10:06 | Outpatient (AMB) | payer BC, SELFPAY ==
[2025-02-25 10:11] VITALS: BP 130/90; PULSE 97; TEMP 36.7; O2SAT 99; BMI 25.1
--- NOTE | 2025-02-25 10:11 | A.OFFPC_ITS ---
Vital Signs 02/25/25 10:11 02/25/25 10:40 Height 5 ft 6 in Weight 155 lb 6 oz BMI 25.1 BP 130/90 H 128/82 Blood Pressure Location Lt brachial Rt brachial Position Sitting Sitting Pulse 97 Pulse Source Pulse Oximeter Temp 98.1 F Temp Source Temporal Artery Scan Pulse Oximetry (%) 99 Oxygen Delivery Method Room Air Intake Visit Reasons: severe sciatica Pharmaceutical Salesperson Required: No Accompanied by: Self / Same As Patient Allergies No Known Allergies (No Known Allergies*) Allergy (Verified 02/25/25 10:13) Tobacco use date assessed: 09/10/24 Dental Screening Dental Screen Date: 02/25/25 Did you have a dental visit in the last 12 months?: Yes Did you have a dental problem in the last 6 months where you did not have access to dental care?: No Was dental information given to patient?: Patient has dentist HPI severe sciatica HPI Details 43-year-old female with past medical his tory of anxiety and depression last seen 10/2024 coming in for acute problem. Presenting with sciatica and a request for a work accommodation. The patient reports lower left back and gluteal pain consistent with sciatica, which has been present for approximately two years but has been more noticeable in the last six months. 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 The pain is alleviated by using a heating pad and stretching; in the past, soaking in a hot tub provided relief. She has had no recent injuries or accidents. Previously she has a sit-stand desk which significantly improved her back pain. 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 Cognitive needs: No Hearing needs: No Vision needs: Yes (Glasses) Questionnaire Thrive Questionnaire Date Thrive assessed: 07/03/24 I am a: Patient What is your living situation today?: I have a steady place to live Within the past 12 months, did the food you bought not last and you didn't have the money to get more?: Never true Within the past 12 months, did you worry whether your food would run out before you got money to buy more?: Never true Do you have trouble paying for medicines?: No Do you have trouble getting transportation to medical appointments?: No Do you have trouble paying your heating and electricity bill?: No Do you have trouble taking care of your child, family member or friend?: No Do you have trouble with day-to-day activities such as bathing, preparing meals, shopping, managing finances, etc.?: No Are you currently unemployed and looking for a job?: No Are you interested in more education?: No Please select the resources that you would like help with: None Currently or been in a relationship where the following occur: No concerns reported THRIVE Score: 0 AUDIT C Alcohol Use Questionnaire (AUDIT-C) 1. How often do you have a drink containing alcohol?: Monthly or less 2. How many drinks containing alcohol do you have on a typical day when you are drinking?: 1 or 2 3. How often do you have six or more drinks on one occasion?: Less than monthly Total Score: 2 Score Reviewed/Action Taken: Yes LYNETTE-7 AMB Questionnaire LYNETTE-7 Date LYNETTE - 7 assessed: 10/09/24 Feeling nervous, anxious, or on edge: 1 = Several days Not being able to stop or control worryin = Several days Worrying too much about different things: 1 = Several days Trouble relaxin = Several days Being so restless that it is hard to sit still: 0 = Not at all Becoming easily annoyed or irritable: 0 = Not at all Feeling afraid as if something awful might happen: 0 = Not at all Total LYNETTE-7 score (0-4 normal; 5-9 mild; 10-14 moderate; 15-21 severe): 4 Source: Developed by Drs. Kamaljit Garcia, Sandhya Butt, Eric Pettit and colleagues, with an educational colby from [employer]. Review of Systems Const Denies body aches, Denies chills and Denies fever(s) Card Denies chest pain, Denies lightheadedness and Denies dyspnea Resp Denies dyspnea Reports no additional complaints Musc Reports as per HPI Physical exam (Primary Care) Vital Signs: Last Vital Signs Temp 98.1 F 02/25/25 10:11 Pulse 97 02/25/25 10:11 BP 128/82 02/25/25 10:40 Pulse Ox 99 02/25/25 10:11 Oxygen Delivery Method Room Air 02/25/25 10:11 BMI result Body Mass Index 25.1 Tobacco/Smoking Status: Tobacco use Status Tobacco use date assessed 09/10/24 02/25/25 10:16 Patient Tobacco Use Status Never used Tobacco 02/25/25 10:16 e-Cigarette/Vaping Use Currently Using 02/25/25 10:16 Thrive Assessment: Date of Thrive Assessment Date Thrive assessed 07/03/24 02/25/25 10:16 Currently or been in a relationship where the following occur: No concerns reported Const General: cooperative, healthy appearing, comfortable and no acute distress Orientation/consciousness: patient oriented x3 HENMT Head: Yes normocephalic Ears: hearing grossly normal bilaterally General nose exam: Normal external nose present Resp Effort & Inspection: normal respiratory effort Cardio Rate: regular rate Rhythm: regular rhythm Back/Spine/Pelvis Other: No TTP of lumbar spine or paraspinal muscles. + left SLR Neuro General: patient oriented x3 Gait exam (Neuro): Normal gait present Extrem General: Yes normal to inspection, Yes full ROM and No edema Psych Affect: normal affect Attitude: cooperative Insight: Good insight present (Psych) Judgement: Good judgement present (Psych) Coding Level of Care Code Est Pt Level 3 (80242) Diagnoses Low back pain M54.50 Anxiety F41.9 Assessment & Plan Assessment & Plan (1) Low back pain: Code(s): M54.50 - Low back pain, unspecified Category: Medical Plan: The patient's lower back pain is suggestive of sciatica, potentially secondary to a disc herniation given the tenderness elicited on straight leg raise test. A note was provided for work accommodations, including a sit-stand desk and a compression mat. Management will include conservative measures such as Tylenol, ibuprofen, and a heating pad as needed along with back stretching. An X-ray of the back was ordered to rule out underlying abnormalities. Information on home exercises was provided, and if symptoms worsen or persist, a referral to physical therapy will be made. A muscle relaxer was offered if pain interferes with sleep. (2) Anxiety: Code(s): F41.9 - Anxiety disorder, unspecified Category: Medical Plan: The patient reports significant stress from work and home life. A referral for counseling was placed to provide mental health support, which the patient can utilize if desired. Plan This note was constructed using voice recognition software. While every effort has been made to ensure accuracy and rough rounder machine, still areas may have been included sometimes these areas may affect the content or meeting of the given symptoms. Total time spent caring for the patient today was 20 minutes. This includes time spent before the visit reviewing the chart, time spent during the visit, and time spent after the visit and documentation. Patient was informed and verbally consented to the use of an ambient scribe for clinic note documentation during this visit. Orders: Orders XR lumbar spine 2-3V Today M54.50 - Low back pain, unspecified Referrals Counseling Referral F32.A - Depression, unspecified, F41.9 - Anxiety disorder, unspecified
[2025-02-25 10:40] VITALS: BP 128/82
== END 2025-02-25 10:46 | disposition home or self-care (01) ==
LOC: HO.HMCH 10:07
DX: M54.50 Low back pain, unspecified (principal); F41.9 Anxiety disorder, unspecified